=== PATIENT | male | born 1945 | race Caucasian/White ===

== ENCOUNTER 2017-10-14 01:08 | Outpatient (CLI) | payer MEDICARE ==
[~2017-10-14 01:08] MED LIST: ALLO100T PO; AMLO10TA4 PO; ATEN100T PO; DILT120C62 PO; TEMA30CA5 PO
== END 2017-10-14 23:59 | disposition home or self-care (01) ==
LOC: DIABETIC 01:08
PROVIDERS: ATTEND Specialist
DX: E11.65 Type 2 diabetes mellitus with hyperglycemia (principal); I10 Essential (primary) hypertension; M10.9 Gout, unspecified; Z85.038 Personal history of other malignant neoplasm of large intestine
CPT/HCPCS: G0108

== ENCOUNTER 2018-10-21 21:38 | Inpatient (IN) | payer MEDICARE ==
[~2018-10-21] VITALS: Ht 180.3 cm; Wt 116.0 kg
[2018-10-21 22:43] LABS: BASOPHILS # (AUTO) 0.1 X10'3 (0-0.2); BASOPHILS % (AUTO) 0.7 % (0-1); EOSINOPHILS # (AUTO) 0.1 X10'3 (0-0.9); EOSINOPHILS % (AUTO) 1.5 % (0-6); HEMATOCRIT 46.9 % (42.0-52.0); LYMPHOCYTES # (AUTO) 1.5 X10'3 (1.1-4.8); LYMPHOCYTES % (AUTO) 21.4 % (21-51); MEAN CORPUSCULAR HEMOGLOBIN 30.1 PG (27.0-31.0); MEAN CORPUSCULAR VOLUME 88.5 FL (78-98); MEAN PLATELET VOLUME 7.2 FL (7.4-10.4); MONOCYTES # (AUTO) 0.6 X10'3 (0-0.9); MONOCYTES % (AUTO) 8.2 % (2-12); NEUTROPHILS # (AUTO) 4.9 X10'3 (1.8-7.7); NEUTROPHILS % (AUTO) 68.2 % (42-75); PLATELET COUNT 151 X10'3 (140-440); RED CELL DISTRIBUTION WIDTH 13.8 % (11.5-14.5); WHITE BLOOD COUNT 7.2 X10'3 (4.5-11.0)
[2018-10-21 23:00] LABS: ALANINE AMINOTRANSFERASE 44 U/L (12-78); ALBUMIN 3.6 G/DL (3.4-5.0); ALBUMIN/GLOBULIN RATIO 1.1 (1.1-1.5); ALKALINE PHOSPHATASE 102 IU/L (46-116); ANION GAP 13 (8-16); ASPARTATE AMINO TRANSFERASE 37 U/L (10-37); BILIRUBIN,TOTAL 0.7 MG/DL (0.1-1.0); BLOOD UREA NITROGEN 15 MG/DL (7-18); BUN/CREATININE RATIO 11.5 (5.4-32.0); CALCIUM 8.7 MG/DL (8.5-10.1); CHLORIDE 107 MMOL/L (99-107); CREATININE 1.31 MG/DL (0.60-1.10); GLUCOSE 136 MG/DL (70-104); POTASSIUM 4.4 MMOL/L (3.5-5.1); SODIUM 142 MMOL/L (135-145); TOTAL CARBON DIOXIDE 21.9 MMOL/L (24-32); TOTAL PROTEIN 6.8 G/DL (6.4-8.2); TROPONIN I < 0.04 NG/ML (0.0-0.05); eGFR 53 ML/MIN
[2018-10-21 23:01] LABS: PARTIAL THROMBOPLASTIN TIME 27 SECONDS (22-32)
[2018-10-22] VITALS (7 sets, daily range): BP systolic 93–139; BP diastolic 58–107
[2018-10-22] MEDS ORDERED: ASPI-147 PO (00:46)
[2018-10-22 01:00] LABS: CLARITY,URINE CLEAR (Clear); COLOR,URINE YELLOW (Yellow); GLUCOSE, URINE NEGATIVE (Neg); KETONES,URINE 15 mg/dl (Neg); LEUKOCYTE ESTERASE ,URINE NEGATIVE (Neg); NITRITES, URINE NEGATIVE (Neg); OCCULT BLOOD,URINE NEGATIVE (Neg); PROTEIN,URINE NEGATIVE (Neg); UA COLLECTION TYPE CLN CATCH MIDSTREAM; UROBILINOGEN,URINE 0.2 E.U/dL (0.2-1.0)
[2018-10-22] MEDS ORDERED: ondansetron/PF 4mg/2ml inj IV PRN (02:35)
[2018-10-22] MEDS ORDERED: magnesium hydroxide 30ml (MOM) UD suspension PO PRN (02:35)
[2018-10-22] MEDS ORDERED: acetaminophen 325mg tablet PO PRN (02:35)
[2018-10-22] MEDS ORDERED: mag hydrox/Alum hydrox/simeth 30ml oral suspension PO PRN (02:35)
[2018-10-22] MEDS ORDERED: dextrose ORAL solution 15 GM/59 ML bottle PO PRN ×2 (02:40)
[2018-10-22] MEDS ORDERED: glucagon, human recombinant 1mg kit SUBCUT PRN (02:40)
[2018-10-22] MEDS ORDERED: MESSAGE TO PHARMACY PO ONE (02:40)
[2018-10-22] MEDS ORDERED: dextrose 50%-water 50ml dispensing syringe IV PRN ×2 (02:40)
[2018-10-22] MEDS ORDERED: insulin Lispro (HumaLOG) vial - multi-dose SQ SCH (02:40)
[2018-10-22 02:58] LABS: HEMOGLOBIN A1C 5.9 % (4.5-6.2)
[2018-10-22] MEDS ORDERED: GLIP10TA11 PO (03:01)
--- NOTE | 2018-10-22 04:10 | NUR ---
Patient in room PCU 3016. I have received report from Nasir TREVIZO (ER) and had the opportunity to ask questions and assume patient care. Patient arrived to telemetry by jeni, alert and oriented, and was able to place himself into a patient bed. Vitals taken, telemetry placed and orientation to room 3016A.
--- NOTE | 2018-10-22 06:43 | NUR ---
Problems reprioritized. Patient report given, questions answered & plan of care reviewed with Ngozi TREVIZO and Ernestina TREVIZO.
[2018-10-22] MEDS: aspirin/acetaminophen/caffeine tablet PO SCH ×3 (09:18→21:16)
[2018-10-22] MEDS: heparin, porcine 5000 units/ml vial SQ SCH ×2 (09:19→21:12)
[2018-10-22] MEDS ORDERED: AMLO5TAB PO (13:39)
[2018-10-22] MEDS ORDERED: ATOR20TA66 PO (13:40)
--- NOTE | 2018-10-22 18:58 | NUR ---
Problems reprioritized. Patient report given, questions answered & plan of care reviewed with KATINA TREVIZO.
--- NOTE | 2018-10-22 19:00 | NUR ---
Patient in room PCU 3016. I have received report from Ngozi RN/ Ernestina RN and had the opportunity to ask questions and assume patient care. Patient sitting in bed, at bedside. Will continue to monitor.
[2018-10-22] MEDS ORDERED: amLODIPine 5mg tablet PO SCH (21:00)
[2018-10-22] MEDS: insulin glargine (Lantus) pen - multi-dose SQ SCH (21:00)
[2018-10-22] MEDS: atenolol 50mg tablet PO SCH (21:15)
[2018-10-22] MEDS: allopurinol 300 MG tablet PO SCH (21:15)
[2018-10-23 02:00] VITALS: BP 107/66
[2018-10-23 06:00] VITALS: BP 119/67
[2018-10-23 06:07] LABS: BASOPHILS % (AUTO) 0.7 % (0-1); EOSINOPHILS # (AUTO) 0.2 X10'3 (0-0.9); EOSINOPHILS % (AUTO) 3.6 % (0-6); LYMPHOCYTES # (AUTO) 2.1 X10'3 (1.1-4.8); LYMPHOCYTES % (AUTO) 42.3 % (21-51); MEAN CORPUSCULAR HEMOGLOBIN 30.3 PG (27.0-31.0); MEAN CORPUSCULAR HGB CONC 34.2 g/dL (33.0-36.5); MEAN CORPUSCULAR VOLUME 88.5 FL (78-98); MEAN PLATELET VOLUME 7.2 FL (7.4-10.4); MONOCYTES # (AUTO) 0.4 X10'3 (0-0.9); NEUTROPHILS # (AUTO) 2.2 X10'3 (1.8-7.7); NEUTROPHILS % (AUTO) 44.4 % (42-75); PLATELET COUNT 134 X10'3 (140-440); RED BLOOD COUNT 4.64 X10'6 (4.70-6.10); RED CELL DISTRIBUTION WIDTH 13.9 % (11.5-14.5)
--- NOTE | 2018-10-23 06:11 | NUR ---
Problems reprioritized. Patient report given, questions answered & plan of care reviewed with Shabbir RN & Dai RN orientee. Patient resting eyes closed respirations even.
[2018-10-23 06:23] LABS: ALANINE AMINOTRANSFERASE 35 U/L (12-78); ALKALINE PHOSPHATASE 84 IU/L (46-116); ANION GAP 8 (8-16); ASPARTATE AMINO TRANSFERASE 30 U/L (10-37); BILIRUBIN,TOTAL 0.6 MG/DL (0.1-1.0); BLOOD UREA NITROGEN 15 MG/DL (7-18); BUN/CREATININE RATIO 13.2 (5.4-32.0); CALCIUM 8.7 MG/DL (8.5-10.1); CHLORIDE 109 MMOL/L (99-107); CREATININE 1.14 MG/DL (0.60-1.10); GLUCOSE 111 MG/DL (70-104); POTASSIUM 4.2 MMOL/L (3.5-5.1); SODIUM 142 MMOL/L (135-145); TOTAL CARBON DIOXIDE 25.2 MMOL/L (24-32); TOTAL PROTEIN 5.9 G/DL (6.4-8.2); eGFR 63 ML/MIN
--- NOTE | 2018-10-23 06:32 | NUR ---
Patient in room PCU 3016. I have received report from SANTHOSH Sanchez and had the opportunity to ask questions and assume patient care.
[2018-10-23] MEDS: aspirin/acetaminophen/caffeine tablet PO SCH ×3 (07:25→19:56)
[2018-10-23] MEDS: heparin, porcine 5000 units/ml vial SQ SCH ×2 (07:25→20:44)
--- NOTE | 2018-10-23 09:09 | NUR ---
PAGER ID: [phone] MESSAGE: [id number] Bud Kenia: Is he getting a olivia-scan today? SANTHOSH Ortega Ext [phone]
--- NOTE | 2018-10-23 09:24 | NUR ---
PAGER ID: [phone] MESSAGE: [id number] Bud Kenia: Do you want him to be getting a olivia-scan today? SANTHOSH Ortega Ext [phone]
[2018-10-23] MEDS ORDERED: metoprolol tartrate 1mg/ml inj IV PRN (09:30)
[2018-10-23] MEDS ORDERED: aminophylline 250mg/10ml inj. IV PRN (09:30)
[2018-10-23] MEDS ORDERED: nitroGLYCERIN 0.4mg SUBLingual tab SL PRN (09:30)
[2018-10-23] MEDS ORDERED: regadenoson 0.4mg/5ml syringe IV ONE (09:30)
--- NOTE | 2018-10-23 10:15 | NUR ---
PAGER ID: [phone] MESSAGE: [id number] Bud Aquino: Patient is wondering if we could get a uric acid level. He was wanting to know that lab. SANTHOSH Ortega Ext [phone]
[2018-10-23 11:00] VITALS: BP 125/68
[2018-10-23 15:00] VITALS: BP 96/51
--- NOTE | 2018-10-23 18:23 | NUR ---
Problems reprioritized. Patient report given, questions answered & plan of care reviewed with SANTHOSH Mayorga.
--- NOTE | 2018-10-23 18:44 | NUR ---
Patient in room U 3016. I have received report from SANTHOSH Ortega and had the opportunity to ask questions and assume patient care. Addendum: 10/23/18 at 1844 by Tierra Rios RN Amended: Links added.
[2018-10-23 19:00] VITALS: BP 114/68
[2018-10-23] MEDS: allopurinol 300 MG tablet PO SCH (20:45)
[2018-10-23] MEDS: insulin glargine (Lantus) pen - multi-dose SQ SCH (21:00)
[2018-10-23 23:00] VITALS: BP 114/83
[2018-10-23] MEDS: atenolol 50mg tablet PO SCH (23:14)
--- NOTE | 2018-10-23 23:15 | NUR ---
patient refused to take the atenolol for tonight
[2018-10-24] VITALS (12 sets, daily range): BP systolic 114–140; BP diastolic 56–89
[2018-10-24 05:30] LABS: BASOPHILS # (AUTO) 0.1 X10'3 (0-0.2); BASOPHILS % (AUTO) 1.1 % (0-1); EOSINOPHILS # (AUTO) 0.2 X10'3 (0-0.9); EOSINOPHILS % (AUTO) 4.7 % (0-6); HEMATOCRIT 43.8 % (42.0-52.0); HEMOGLOBIN 14.9 g/dl (14.0-17.9); LYMPHOCYTES # (AUTO) 1.9 X10'3 (1.1-4.8); LYMPHOCYTES % (AUTO) 39.1 % (21-51); MEAN CORPUSCULAR HEMOGLOBIN 30.2 PG (27.0-31.0); MEAN CORPUSCULAR HGB CONC 34.1 g/dL (33.0-36.5); MEAN CORPUSCULAR VOLUME 88.5 FL (78-98); MEAN PLATELET VOLUME 7.5 FL (7.4-10.4); MONOCYTES # (AUTO) 0.5 X10'3 (0-0.9); MONOCYTES % (AUTO) 9.9 % (2-12); NEUTROPHILS # (AUTO) 2.2 X10'3 (1.8-7.7); NEUTROPHILS % (AUTO) 45.2 % (42-75); PLATELET COUNT 141 X10'3 (140-440); RED BLOOD COUNT 4.95 X10'6 (4.70-6.10); RED CELL DISTRIBUTION WIDTH 13.8 % (11.5-14.5); WHITE BLOOD COUNT 4.8 X10'3 (4.5-11.0)
[2018-10-24 05:47] LABS: ALANINE AMINOTRANSFERASE 39 U/L (12-78); ALBUMIN 3.1 G/DL (3.4-5.0); ALKALINE PHOSPHATASE 88 IU/L (46-116); ANION GAP 8 (8-16); ASPARTATE AMINO TRANSFERASE 33 U/L (10-37); BILIRUBIN,TOTAL 0.5 MG/DL (0.1-1.0); BLOOD UREA NITROGEN 16 MG/DL (7-18); BUN/CREATININE RATIO 18.6 (5.4-32.0); CALCIUM 8.7 MG/DL (8.5-10.1); CHLORIDE 108 MMOL/L (99-107); CREATININE 0.86 MG/DL (0.60-1.10); GLUCOSE 111 MG/DL (70-104); POTASSIUM 4.2 MMOL/L (3.5-5.1); SODIUM 142 MMOL/L (135-145); TOTAL CARBON DIOXIDE 26.4 MMOL/L (24-32); TOTAL PROTEIN 6.1 G/DL (6.4-8.2); eGFR 87 ML/MIN
--- NOTE | 2018-10-24 06:03 | NUR ---
Problems reprioritized. Patient report given, questions answered & plan of care reviewed with SANTHOSH Ortega. Addendum: 10/24/18 at 0603 by Tierra Rios RN Amended: Links added.
[2018-10-24] MEDS: aspirin/acetaminophen/caffeine tablet PO SCH (06:11)
--- NOTE | 2018-10-24 06:13 | NUR ---
Patient in room PCU 3016. I have received report from SANTHOSH Mayorga and had the opportunity to ask questions and assume patient care.
[2018-10-24] MEDS: heparin, porcine 5000 units/ml vial SQ SCH (08:00)
--- NOTE | 2018-10-24 10:25 | NUR ---
Pt expressing desire to leave AMA as he has an appointment in [place] this early afternoon. Phoned Dr Maurice and notified her of patient's desire, she states that she will come talk to the patient.
--- NOTE | 2018-10-24 11:26 | NUR ---
Discharged IV and tele out. Educated on syncope follow-up and give DM survival skills. Stable for DC per MD.
== END 2018-10-24 11:17 | disposition home or self-care (01) | DRG 644 ==
LOC: ER 21:38 → PCU 3S 10-22 04:16 → CMPBEDREQ 10-22 04:28
PROVIDERS: ADMIT Internal Medicine; ATTEND Internal Medicine
PROC: 4A02XM4 Measurement of Cardiac Total Activity, External Approach (ICD-10-PCS; principal; 2018-10-24)
PROC: 3E033HZ Introduction of Radioactive Substance into Peripheral Vein, Percutaneous Approach (ICD-10-PCS; 2018-10-24)
DX: E16.0 Drug-induced hypoglycemia without coma (principal); N17.9 Acute kidney failure, unspecified; I48.1 Persistent atrial fibrillation; R55 Syncope and collapse; I48.0 Paroxysmal atrial fibrillation; I10 Essential (primary) hypertension; E11.9 Type 2 diabetes mellitus without complications; E66.9 Obesity, unspecified; E78.5 Hyperlipidemia, unspecified; M10.9 Gout, unspecified; I65.23 Occlusion and stenosis of bilateral carotid arteries; K43.9 Ventral hernia without obstruction or gangrene; M19.90 Unspecified osteoarthritis, unspecified site; T38.3X5A Adverse effect of insulin and oral hypoglycemic [antidiabetic] drugs, initial encounter; Z79.84 Long term (current) use of oral hypoglycemic drugs; Z79.899 Other long term (current) drug therapy; Z85.048 Personal history of other malignant neoplasm of rectum, rectosigmoid junction, and anus; Z86.73 Personal history of transient ischemic attack (TIA), and cerebral infarction without residual deficits; Z68.35 Body mass index [BMI] 35.0-35.9, adult; Y92.89 Other specified places as the place of occurrence of the external cause
CPT/HCPCS: 36415; 70450; 71045; 78452; 80053; 81003; 82948; 83036; 84439; 84443; 84484; 84550; 85025; 85610; 85730; 87081; 93005; 93017; 93306; 93880; 99285; A9500; G0378; J0280; J1644; J1815; J2785

== ENCOUNTER 2018-10-29 06:18 | Inpatient (IN) | payer MEDICARE ==
[2018-10-29] VITALS (24 sets, daily range): BP systolic 117–171; BP diastolic 68–110
[~2018-10-29] VITALS: Ht 180.3 cm; Wt 117.0 kg
[~2018-10-29 06:18] MED LIST changes: -AMLO10TA4 PO; +ASPI-147 PO; +ATOR20TA66 PO; -DILT120C62 PO; -TEMA30CA5 PO
[2018-10-29] MEDS ORDERED: cefazolin/dext.iso 2gm/100 ML IV ONE (08:00)
[2018-10-29] MEDS ORDERED: ringers solution, lacted 1,000 ML IV SCH ×2 (08:00→08:54)
[2018-10-29] MEDS ORDERED: DOCUMENT DATE & TIME OF BETA-BLOCKER PO ONE (08:00)
[2018-10-29] MEDS ORDERED: famotidine 20mg tablet PO ONE (08:00)
[2018-10-29] MEDS ORDERED: BUPIVAcaine/PF 2.5mg/ml (0.25%) 10ml vial ONE (08:39)
[2018-10-29] MEDS ORDERED: BUPIVACAINE liposomal/PF 13.3 MG/ML vial IM ONE (08:39)
[2018-10-29] MEDS ORDERED: midazolam 2 mg/2 ml injection ONE (08:42)
[2018-10-29] MEDS ORDERED: fentaNYL /PF 50mcg/ml 5ml ampule ONE (08:42)
[2018-10-29] MEDS ORDERED: ondansetron/PF 4mg/2ml inj ONE (08:44)
[2018-10-29] MEDS ORDERED: propofol inj 20 ML IV ONE (08:44)
[2018-10-29] MEDS ORDERED: LIDOcaine 1%/PF 5ML 10 MG/ML VIAL ONE (08:44)
[2018-10-29] MEDS ORDERED: rocuronium 10mg/ml inj IV ONE ×2 (08:44→11:10)
[2018-10-29] MEDS ORDERED: labetalol 20mg/4ml (5mg/ml) syringe IV PRN (08:55)
[2018-10-29] MEDS ORDERED: ondansetron/PF 4mg/2ml inj IV PRN ×2 (08:55→18:35)
[2018-10-29] MEDS ORDERED: hydrALAZINE 20mg/ml inj. IV PRN (08:55)
[2018-10-29] MEDS ORDERED: fentaNYL/PF 50MCG/1 ML 2ML syringe IV PRN (08:55)
[2018-10-29] MEDS ORDERED: morphine 4 MG/ML inj SYRINge IV PRN (08:55)
[2018-10-29] MEDS ORDERED: hydrALAZINE 20mg/ml inj. IV ONE (11:10)
[2018-10-29] MEDS ORDERED: glycopyrrolate 0.2mg/ml inj ONE (12:07)
[2018-10-29] MEDS ORDERED: morphine 10mg/ml inj. ONE (12:56)
--- NOTE | 2018-10-29 13:09 | NUR ---
Received from OR via BED, accompanied by Anesthesiologist DR JOHNSON and report given by Anesthesiologist. PT DROWSY, DENIES PAIN, ABDOMINAL BINDER COVERING INCISION AND DRSG, CDI. Addendum: 10/29/18 at 1331 by Criss Lindquist RN Amended: Links added.
[2018-10-29] MEDS ORDERED: MESSAGE TO PHARMACY PO ONE (13:10)
[2018-10-29] MEDS ORDERED: dextrose ORAL solution 15 GM/59 ML bottle PO PRN ×2 (13:10)
[2018-10-29] MEDS ORDERED: naloxone 0.4 mg/ml inj IV PRN (13:10)
[2018-10-29] MEDS ORDERED: CADD PCA waste documentation MC PRN (13:10)
[2018-10-29] MEDS ORDERED: dextrose 50%-water 50ml dispensing syringe IV PRN ×2 (13:10)
[2018-10-29] MEDS ORDERED: insulin Lispro (HumaLOG) vial - multi-dose SQ SCH (13:10)
[2018-10-29] MEDS ORDERED: glucagon, human recombinant 1mg kit SUBCUT PRN (13:10)
[2018-10-29] MEDS: morphine 4 MG/ML inj SYRINge IV PRN ×2 (13:26→14:19)
[2018-10-29] MEDS: fentaNYL/PF 50MCG/1 ML 2ML syringe IV PRN ×2 (13:41→13:56)
[2018-10-29] MEDS: HYDROmorphone/NS 1 mg/ml CADD 50 ML IV SCH ×6 (14:30→23:00)
[2018-10-29] MEDS ORDERED: HYDROmorphone/NS 1 mg/ml CADD 50 ML IV SCH ×2 (14:45→15:00)
--- NOTE | 2018-10-29 15:29 | NUR ---
CALLED DR JOHNSON AND DR VERAS W/UPDATE REGARDING PT STATING HE IS FEELING SO POORLY, ORDERS RECEIVED THAT ITS OK TO SEND PT TO SURGICAL FLOOR, PT SENT ON TELE #2,Report called to receiving nurse. Transferred via BED, NO Belongings, PTS TOOK THEM HOME, PT BLL, CALL LIGHT GIVEN, SIDE RAILS UP X 2, RECIEVING RN NOTIFIED OF PTS ARRIVAL. Special Issues communicated to receiving nurse. YES. Addendum: 10/29/18 at 1545 by Criss Lindquist RN Amended: Links added.
--- NOTE | 2018-10-29 15:30 | NUR ---
Patient in room ADRIENNE 356. I have received report from weatherstrip machine operator and had the opportunity to ask questions and assume patient care. Patient in room states pain is at a 4/10. Patient hard clear lungs throughout. Patient heart rate very rapid difficult to hear if there was any irregularities. Patient showed good circulation in all extremities. Patient in no distress and started on post op vitals. Patient was introduced to the call light and seemed to understand the CADD pump well. Patient states he just wants to rest at this time.
[2018-10-29] MEDS ORDERED: cefoxitin sod inj 2,000 MG in normal saline 100ml IV soln 100 ML IV SCH (16:00)
[2018-10-29] MEDS ORDERED: aspirin/acetaminophen/caffeine tablet PO PRN (16:15)
[2018-10-29] MEDS ORDERED: normal saline 500ml IV soln 500 ML IV ONE (17:45)
[2018-10-29] MEDS ORDERED: ketorolac tromethamine 15mg/ml inj. IM PRN ×2 (17:45→17:57)
[2018-10-29] MEDS ORDERED: ketorolac tromethamine 15mg/ml inj. IV PRN (17:56)
[2018-10-29] MEDS: ceFOXitin sod/dextrose 2g/50ml 50 ML IV SCH (17:58)
--- NOTE | 2018-10-29 18:30 | NUR ---
Patient in room ADRIENNE 356. I have received report from SANTHOSH Au and had the opportunity to ask questions and assume patient care.
--- NOTE | 2018-10-29 18:30 | NUR ---
Problems reprioritized. Patient report given, questions answered & plan of care reviewed with Meet TREVIZO.
[2018-10-29] MEDS: atenolol 50mg tablet PO SCH (20:03)
[2018-10-29] MEDS: allopurinol 300 MG tablet PO SCH (20:55)
[2018-10-29] MEDS: insulin glargine (Lantus) pen - multi-dose SQ SCH (21:00)
--- NOTE | 2018-10-29 21:00 | NUR ---
non-admin lantus r/t no labs available from current visit to check GFR. Will check with MD in AM
[2018-10-30] VITALS: BP 144/93
[2018-10-30] MEDS: ceFOXitin sod/dextrose 2g/50ml 50 ML IV SCH ×4 (00:06→23:59)
[2018-10-30] MEDS: HYDROmorphone/NS 1 mg/ml CADD 50 ML IV SCH ×12 (01:00→23:00)
[2018-10-30 04:00] VITALS: BP 170/84
--- NOTE | 2018-10-30 04:30 | NUR ---
francisco javier munguia per MD rojas
--- NOTE | 2018-10-30 05:32 | NUR ---
called tele chamber, pt's heart rate is in 90's
[2018-10-30 05:56] LABS: BASOPHILS % (AUTO) 0.1 % (0-1); EOSINOPHILS % (AUTO) 0 % (0-6); HEMATOCRIT 46.1 % (42.0-52.0); HEMOGLOBIN 15.8 g/dl (14.0-17.9); LYMPHOCYTES # (AUTO) 0.7 X10'3 (1.1-4.8); LYMPHOCYTES % (AUTO) 6.6 % (21-51); MEAN CORPUSCULAR HEMOGLOBIN 30.4 PG (27.0-31.0); MEAN CORPUSCULAR HGB CONC 34.3 g/dL (33.0-36.5); MEAN CORPUSCULAR VOLUME 88.7 FL (78-98); MEAN PLATELET VOLUME 7.4 FL (7.4-10.4); MONOCYTES % (AUTO) 10.1 % (2-12); NEUTROPHILS # (AUTO) 8.4 X10'3 (1.8-7.7); NEUTROPHILS % (AUTO) 83.2 % (42-75); PLATELET COUNT 177 X10'3 (140-440); RED BLOOD COUNT 5.19 X10'6 (4.70-6.10); RED CELL DISTRIBUTION WIDTH 13.5 % (11.5-14.5); WHITE BLOOD COUNT 10.1 X10'3 (4.5-11.0)
--- NOTE | 2018-10-30 06:30 | NUR ---
Patient in room ADRIENNE 356. I have received report from Meet TREVIZO and had the opportunity to ask questions and assume patient care.
--- NOTE | 2018-10-30 06:48 | NUR ---
Problems reprioritized. Patient report given, questions answered & plan of care reviewed with SANTHOSH Au.
[2018-10-30 08:09] VITALS: BP 168/119
[2018-10-30] MEDS: enoxaparin 40mg/0.4ml syringe SQ SCH (08:39)
[2018-10-30 11:00] VITALS: BP 145/92
--- NOTE | 2018-10-30 18:30 | NUR ---
Patient in room ADRIENNE 356. I have received report from SANTHOSH Moss and had the opportunity to ask questions and assume patient care. Addendum: 10/30/18 at 1903 by Marion Alexis RN Amended: Links added.
--- NOTE | 2018-10-30 18:30 | NUR ---
Problems reprioritized. Patient report given, questions answered & plan of care reviewed with Stephen TREVIZO. Addendum: 10/30/18 at 191 by Cesar Snyder RN Report was given with Lima Fernandez RN, above nurse listed was incorrect in who report was given to.
[2018-10-30 19:00] VITALS: BP 143/72
[2018-10-30] MEDS: allopurinol 300 MG tablet PO SCH (20:51)
[2018-10-30] MEDS: atenolol 50mg tablet PO SCH (20:55)
[2018-10-30] MEDS: insulin glargine (Lantus) pen - multi-dose SQ SCH (21:00)
[2018-10-30] MEDS ORDERED: normal saline 1000ml 500 ML IV SCH (23:22)
[2018-10-30] MEDS ORDERED: normal saline 500ml IV soln 500 ML IV SCH (23:31)
[2018-10-31 00:41] VITALS: BP 144/92
[2018-10-31] MEDS: HYDROmorphone/NS 1 mg/ml CADD 50 ML IV SCH ×6 (01:00→11:00)
[2018-10-31 05:17] LABS: BASOPHILS % (AUTO) 0.4 % (0-1); EOSINOPHILS # (AUTO) 0.1 X10'3 (0-0.9); EOSINOPHILS % (AUTO) 0.8 % (0-6); HEMATOCRIT 42.1 % (42.0-52.0); HEMOGLOBIN 14.5 g/dl (14.0-17.9); LYMPHOCYTES # (AUTO) 1.6 X10'3 (1.1-4.8); LYMPHOCYTES % (AUTO) 16.7 % (21-51); MEAN CORPUSCULAR HEMOGLOBIN 30.9 PG (27.0-31.0); MEAN CORPUSCULAR HGB CONC 34.5 g/dL (33.0-36.5); MEAN CORPUSCULAR VOLUME 89.8 FL (78-98); MEAN PLATELET VOLUME 7.6 FL (7.4-10.4); MONOCYTES # (AUTO) 1.2 X10'3 (0-0.9); MONOCYTES % (AUTO) 12.7 % (2-12); NEUTROPHILS # (AUTO) 6.7 X10'3 (1.8-7.7); NEUTROPHILS % (AUTO) 69.4 % (42-75); PLATELET COUNT 161 X10'3 (140-440); RED BLOOD COUNT 4.69 X10'6 (4.70-6.10); RED CELL DISTRIBUTION WIDTH 13.9 % (11.5-14.5); WHITE BLOOD COUNT 9.6 X10'3 (4.5-11.0)
--- NOTE | 2018-10-31 06:34 | NUR ---
Problems reprioritized. Patient report given, questions answered & plan of care reviewed with SANTHOSH TIDWELL. Addendum: 10/31/18 at 0634 by Marion Alexis RN Amended: Links added.
[2018-10-31 06:57] VITALS: BP 115/58
[2018-10-31] MEDS: ceFOXitin sod/dextrose 2g/50ml 50 ML IV SCH (07:31)
[2018-10-31] MEDS: enoxaparin 40mg/0.4ml syringe SQ SCH (07:32)
[2018-10-31 12:35] VITALS: BP 124/70
--- NOTE | 2018-10-31 13:20 | NUR ---
discussed with patient discharge instructions including care of reinaldo drain. patient verbalizes understanding of teaching. x3 extra island dressing given to patient. patient dc'd with all personal belongings.
== END 2018-10-31 13:05 | disposition home or self-care (01) | DRG 355 ==
LOC: PAS IN 06:18 → EDSTATUS 09:15 → SUR 3N 13:08
PROVIDERS: ADMIT Surgery; ATTEND Surgery
PROC: 0FT40ZZ Resection of Gallbladder, Open Approach (ICD-10-PCS; 2018-10-29)
PROC: 0KX Muscles, Transfer (ICD-10-PCS; 2018-10-29)
PROC: 0KX Muscles, Transfer (ICD-10-PCS; 2018-10-29)
PROC: 3E0T3BZ Introduction of Anesthetic Agent into Peripheral Nerves and Plexi, Percutaneous Approach (ICD-10-PCS; 2018-10-29)
PROC: 0WUF0KZ Supplement Abdominal Wall with Nonautologous Tissue Substitute, Open Approach (ICD-10-PCS; principal; 2018-10-29 09:10)
DX: K43.2 Incisional hernia without obstruction or gangrene (principal); K80.20 Calculus of gallbladder without cholecystitis without obstruction; I48.91 Unspecified atrial fibrillation; R29.6 Repeated falls; E11.9 Type 2 diabetes mellitus without complications; Z79.84 Long term (current) use of oral hypoglycemic drugs; Z79.899 Other long term (current) drug therapy; Z85.048 Personal history of other malignant neoplasm of rectum, rectosigmoid junction, and anus
CPT/HCPCS: 36415; 82948; 85025; 88304; A4618; A6258; A6402; A7000; C1758; C1781; C9290; G0378; J0360; J0694; J1170; J1650; J1815; J2250; J2270; J2405; J2704; J3010; J3490; J7030; J7040; J7120

== ENCOUNTER 2018-11-03 10:54 | Inpatient (IN) | payer MEDICARE ==
[~2018-11-03] VITALS: Ht 180.3 cm; Wt 116.0 kg
[~2018-11-03 10:54] MED LIST changes: -ATOR20TA66 PO
[2018-11-03 11:22] LABS: BASOPHILS % (AUTO) 0.2 % (0-1); EOSINOPHILS # (AUTO) 0.4 X10'3 (0-0.9); EOSINOPHILS % (AUTO) 4.2 % (0-6); HEMATOCRIT 47.7 % (42.0-52.0); HEMOGLOBIN 16.2 g/dl (14.0-17.9); LYMPHOCYTES # (AUTO) 0.8 X10'3 (1.1-4.8); LYMPHOCYTES % (AUTO) 8.6 % (21-51); MEAN CORPUSCULAR HGB CONC 33.9 g/dL (33.0-36.5); MEAN CORPUSCULAR VOLUME 88.5 FL (78-98); MEAN PLATELET VOLUME 6.7 FL (7.4-10.4); NEUTROPHILS # (AUTO) 6.6 X10'3 (1.8-7.7); PLATELET COUNT 194 X10'3 (140-440); RED BLOOD COUNT 5.39 X10'6 (4.70-6.10); WHITE BLOOD COUNT 8.8 X10'3 (4.5-11.0)
[2018-11-03 11:37] LABS: ALANINE AMINOTRANSFERASE 139 U/L (12-78); ALBUMIN 3.3 G/DL (3.4-5.0); ALBUMIN/GLOBULIN RATIO 0.8 (1.1-1.5); ALKALINE PHOSPHATASE 568 IU/L (46-116); ANION GAP 9 (8-16); ASPARTATE AMINO TRANSFERASE 121 U/L (10-37); BILIRUBIN,TOTAL 0.8 MG/DL (0.1-1.0); BLOOD UREA NITROGEN 14 MG/DL (7-18); BUN/CREATININE RATIO 10.7 (5.4-32.0); CALCIUM 8.9 MG/DL (8.5-10.1); CHLORIDE 100 MMOL/L (99-107); CREATININE 1.31 MG/DL (0.60-1.10); GLUCOSE 162 MG/DL (70-104); POTASSIUM 4.4 MMOL/L (3.5-5.1); SODIUM 137 MMOL/L (135-145); TOTAL CARBON DIOXIDE 27.6 MMOL/L (24-32); TOTAL PROTEIN 7.2 G/DL (6.4-8.2); eGFR 53 ML/MIN
[2018-11-03 11:41] LABS: PARTIAL THROMBOPLASTIN TIME 29 SECONDS (22-32)
[2018-11-03 12:16] LABS: D-DIMER 2.44 MG/L FEU (0-0.50)
[2018-11-03] MEDS ORDERED: iohexol 350MG/ML 100ml bottle IV ONE (13:10)
[2018-11-03] MEDS: metoprolol tartrate 1mg/ml inj IV SCH ×3 (13:19→14:05)
[2018-11-03] MEDS ORDERED: diltiazem 5mg/ml 5ml inj. IV ONE (14:10)
[2018-11-03] MEDS ORDERED: diltiazem-D5W 125mg/125ml 125 ML IV SCH (14:15)
[2018-11-03] MEDS ORDERED: diltiazem-NS 100mg/100ml 100 ML IV SCH (14:20)
[2018-11-03] MEDS ORDERED: morphine 2 MG/ML inj. syringe IV PRN ×2 (16:20)
[2018-11-03] MEDS ORDERED: acetaminophen 325mg tablet PO PRN (16:20)
[2018-11-03] MEDS ORDERED: ondansetron/PF 4mg/2ml inj IV PRN (16:20)
[2018-11-03] MEDS ORDERED: potassium CL 10mEq/100ml bag 100 ML IV PRN ×2 (16:20)
[2018-11-03] MEDS ORDERED: potassium Cl 20 mEq SR tablet PO PRN ×2 (16:20)
[2018-11-03] MEDS ORDERED: magnesium 4gm in 100ml NS 100 ML IV PRN (16:20)
[2018-11-03] MEDS ORDERED: magnesium Cl slow-release 64mg tablet PO PRN (16:20)
[2018-11-03] MEDS ORDERED: magnesium 2GM in 50ml NS 50 ML IV PRN (16:20)
--- NOTE | 2018-11-03 17:30 | NUR ---
Patient brought up to his room was orientated to the room. BP: 154/90 HR 98 patient is complaining of 10/10 right shoulder pain. doctor joel was paged and norco 5mg was ordered as well as to start him on PO 30 mg Cardizem first dose now.
[2018-11-03] MEDS ORDERED: HYDROcodone/acetaminophen 5mg/325mg tablet PO PRN (18:15)
[2018-11-03] MEDS: diltiazem 30mg tablet PO SCH ×2 (18:33→20:25)
--- NOTE | 2018-11-03 18:37 | NUR ---
Patient in room PCU 3028. I have received report from Nat TREVIZO and had the opportunity to ask questions and assume patient care.
--- NOTE | 2018-11-03 18:38 | NUR ---
Problems reprioritized. Patient report given, questions answered & plan of care reviewed with Iram TREVIZO.
[2018-11-03 19:00] VITALS: BP 165/98
[2018-11-03] MEDS ORDERED: oxyCODONE/APAP 10/325mg tablet PO PRN (19:10)
[2018-11-03] MEDS ORDERED: HYDROmorphone 1 mg/ml syringe IV PRN (19:10)
--- NOTE | 2018-11-03 19:26 | NUR ---
contacted dr Ashley about pt's pain 1010, after receiving norco 5, pt wanted to leave A due to uncontrol pain. came and examined pt, he gave order of dilaudid 1mg once and percocet 10mg for pain q4h
[2018-11-03 20:00] VITALS: BP 146/112
[2018-11-03] MEDS: oxyCODONE/APAP 10/325mg tablet PO PRN (20:25)
[2018-11-03 22:00] VITALS: BP 161/116
--- NOTE | 2018-11-03 22:28 | NUR ---
pt's Hr on the 150, called Dr Ashley and got an order of cardizem 10mg
[2018-11-03 23:00] VITALS: BP 154/106
[2018-11-04] VITALS (13 sets, daily range): BP systolic 119–166; BP diastolic 68–94
[2018-11-04] MEDS: diltiazem-NS 100mg/100ml 100 ML IV SCH ×3 (00:20→11:45)
[2018-11-04] MEDS: diltiazem 30mg tablet PO SCH ×4 (01:14→19:08)
[2018-11-04] MEDS: oxyCODONE/APAP 10/325mg tablet PO PRN ×5 (01:14→21:14)
[2018-11-04 05:17] LABS: BASOPHILS % (AUTO) 0.2 % (0-1); EOSINOPHILS # (AUTO) 0.2 X10'3 (0-0.9); EOSINOPHILS % (AUTO) 1.6 % (0-6); HEMATOCRIT 45.6 % (42.0-52.0); HEMOGLOBIN 15.7 g/dl (14.0-17.9); LYMPHOCYTES # (AUTO) 0.6 X10'3 (1.1-4.8); LYMPHOCYTES % (AUTO) 6.5 % (21-51); MEAN CORPUSCULAR HEMOGLOBIN 30.6 PG (27.0-31.0); MEAN CORPUSCULAR HGB CONC 34.5 g/dL (33.0-36.5); MEAN CORPUSCULAR VOLUME 88.8 FL (78-98); MEAN PLATELET VOLUME 7.1 FL (7.4-10.4); MONOCYTES # (AUTO) 1.3 X10'3 (0-0.9); NEUTROPHILS # (AUTO) 7.8 X10'3 (1.8-7.7); NEUTROPHILS % (AUTO) 78.7 % (42-75); PLATELET COUNT 169 X10'3 (140-440); RED BLOOD COUNT 5.13 X10'6 (4.70-6.10); RED CELL DISTRIBUTION WIDTH 13.8 % (11.5-14.5); WHITE BLOOD COUNT 9.9 X10'3 (4.5-11.0)
[2018-11-04 05:43] LABS: ALANINE AMINOTRANSFERASE 102 U/L (12-78); ALBUMIN 3.1 G/DL (3.4-5.0); ALBUMIN/GLOBULIN RATIO 0.8 (1.1-1.5); ALKALINE PHOSPHATASE 507 IU/L (46-116); ANION GAP 12 (8-16); ASPARTATE AMINO TRANSFERASE 62 U/L (10-37); BILIRUBIN,DIRECT 0.3 MG/DL (0-0.3); BLOOD UREA NITROGEN 11 MG/DL (7-18); BUN/CREATININE RATIO 11.1 (5.4-32.0); CALCIUM 8.8 MG/DL (8.5-10.1); CHLORIDE 99 MMOL/L (99-107); CREATININE 0.99 MG/DL (0.60-1.10); GLUCOSE 153 MG/DL (70-104); MAGNESIUM 1.8 MG/DL (1.5-2.4); POTASSIUM 4.9 MMOL/L (3.5-5.1); SODIUM 136 MMOL/L (135-145); TOTAL CARBON DIOXIDE 25.5 MMOL/L (24-32); eGFR 74 ML/MIN
--- NOTE | 2018-11-04 06:25 | NUR ---
Patient in room PCU 3028. I have received report from Iram TREVIZO and had the opportunity to ask questions and assume patient care.
--- NOTE | 2018-11-04 06:40 | NUR ---
Problems reprioritized. Patient report given, questions answered & plan of care reviewed with Nat TREVIZO.
[2018-11-04] MEDS: K and/or MAG REPLACEMENT MC SCH (08:00)
--- NOTE | 2018-11-04 15:59 | NUR ---
Diltizem drip was stopped per doctor behls orders. To stop diltizem when HR is under 100. Patients HR has been in the 85-95s throughout my shift. Drip was stopped.
--- NOTE | 2018-11-04 16:00 | NUR ---
Paged Kaylene ABEL PAGER ID: [phone] MESSAGE: [id number] VENKAT Aquino: Cardizem drip was stopped. HR at 85-95s. Can we also get an order for stool softener. Nat 1308
--- NOTE | 2018-11-04 18:09 | NUR ---
Problems reprioritized. Patient report given, questions answered & plan of care reviewed with Iram TREVIZO.
--- NOTE | 2018-11-04 19:02 | NUR ---
Patient in room PCU 3028. I have received report from Nat TREVIZO and had the opportunity to ask questions and assume patient care.
--- NOTE | 2018-11-04 19:04 | NUR ---
pt stated that seeing some lizards on the ceiling and heard things from the closet, will continue to monitor
[2018-11-04] MEDS ORDERED: atenolol 50mg tablet PO SCH (21:00)
--- NOTE | 2018-11-04 21:30 | NUR ---
called dr Ashley about pt HR that goes up 150s, want to restart the gtt at 5mg
[2018-11-04] MEDS ORDERED: diltiazem-D5W 125mg/125ml 125 ML IV SCH (21:35)
[2018-11-04] MEDS ORDERED: diltiazem-NS 100mg/100ml 125 ML IV SCH (22:00)
[2018-11-04] MEDS ORDERED: diltiazem-NS 100mg/100ml 100 ML IV SCH (22:21)
[2018-11-05] VITALS (10 sets, daily range): BP systolic 109–139; BP diastolic 68–91
--- NOTE | 2018-11-05 01:00 | NUR ---
called dr Ashley about pt that are in range from 80-100 and asked if he wants to adjust the rate of cardizem gtt, but there is no new order from him
[2018-11-05] MEDS: diltiazem 30mg tablet PO SCH ×2 (01:37→07:18)
[2018-11-05] MEDS: oxyCODONE/APAP 10/325mg tablet PO PRN ×3 (01:38→09:51)
[2018-11-05 05:09] LABS: BASOPHILS % (AUTO) 0.2 % (0-1); EOSINOPHILS # (AUTO) 0.2 X10'3 (0-0.9); HEMATOCRIT 44.7 % (42.0-52.0); HEMOGLOBIN 15.3 g/dl (14.0-17.9); LYMPHOCYTES # (AUTO) 0.9 X10'3 (1.1-4.8); LYMPHOCYTES % (AUTO) 7.3 % (21-51); MEAN CORPUSCULAR HEMOGLOBIN 30.3 PG (27.0-31.0); MEAN CORPUSCULAR HGB CONC 34.2 g/dL (33.0-36.5); MEAN CORPUSCULAR VOLUME 88.6 FL (78-98); MEAN PLATELET VOLUME 7.2 FL (7.4-10.4); MONOCYTES # (AUTO) 1.7 X10'3 (0-0.9); NEUTROPHILS # (AUTO) 9.3 X10'3 (1.8-7.7); NEUTROPHILS % (AUTO) 76.5 % (42-75); PLATELET COUNT 197 X10'3 (140-440); RED BLOOD COUNT 5.05 X10'6 (4.70-6.10); RED CELL DISTRIBUTION WIDTH 13.8 % (11.5-14.5); WHITE BLOOD COUNT 12.1 X10'3 (4.5-11.0)
[2018-11-05 05:21] LABS: ALBUMIN 2.8 G/DL (3.4-5.0); ANION GAP 9 (8-16); BLOOD UREA NITROGEN 18 MG/DL (7-18); BUN/CREATININE RATIO 15.7 (5.4-32.0); CALCIUM 8.8 MG/DL (8.5-10.1); CHLORIDE 98 MMOL/L (99-107); CREATININE 1.15 MG/DL (0.60-1.10); GLUCOSE 149 MG/DL (70-104); MAGNESIUM 1.8 MG/DL (1.5-2.4); POTASSIUM 4.6 MMOL/L (3.5-5.1); SODIUM 133 MMOL/L (135-145); TOTAL CARBON DIOXIDE 25.8 MMOL/L (24-32); eGFR 62 ML/MIN
--- NOTE | 2018-11-05 06:21 | NUR ---
Problems reprioritized. Patient report given, questions answered & plan of care reviewed with Macarena TREVIZO.
--- NOTE | 2018-11-05 06:31 | NUR ---
Patient in room PCU 3028 B. I have received report from Iram TREVIZO and had the opportunity to ask questions and assume patient care.
--- NOTE | 2018-11-05 06:32 | NUR ---
Patient in room PCU 3028. I have received report from SANTHOSH Walden and had the opportunity to ask questions and assume patient care. Patient awake in bed with no complaints at this time. All immediate needs met.
[2018-11-05] MEDS: K and/or MAG REPLACEMENT MC SCH (08:00)
[2018-11-05] MEDS ORDERED: diltiazem 30mg tablet PO ONE (09:00)
--- NOTE | 2018-11-05 11:30 | NUR ---
Discontinued cardizem drip running at 5ml/hr per Rissa Allen.
[2018-11-05] MEDS ORDERED: DILT30TA5 PO (12:31)
[2018-11-05] MEDS ORDERED: ASPI-1264 PO (12:31)
[2018-11-05] MEDS ORDERED: ATOR20TA66 PO (12:34)
[2018-11-05] MEDS ORDERED: diltiazem 30mg tablet PO SCH (14:00)
--- NOTE | 2018-11-05 14:05 | NUR ---
Patient sable for discharge per MD orders. All discharge instructions were reviewed with patient, any questions he had were answered. Specified that he needs to follow up with Dr Merchant, and primary care physician. New prescriptions were called into patient's pharmacy of choice, patient's stored Percocet retrieved from pharmacy and given to patient. Discontinued PIV, canula intact, no complications. night monitor discontinued, lead manufacturing technician was notified of patient being discharged. All belongings were collected and sent with patient, picked up and was wheeled to the lobby with assistance by a RN.
--- NOTE | 2018-11-05 15:00 | NUR ---
[place] documentation: I have reviewed and agree with all interventions, assessments performed and documented by SANTHOSH Lala. [place] Medication Administration: For this medication-pass time frame, all medication were reviewed, dispensed, administered and documented per hospital policy by SANTHOSH Lala.
== END 2018-11-05 14:18 | disposition home or self-care (01) | DRG 308 ==
LOC: ER 10:54 → PCU 3S 17:37 → CMPBEDREQ 19:58
PROVIDERS: ADMIT Internal Medicine; ATTEND Family Medicine
PROC: B32T1ZZ Computerized Tomography (CT Scan) of Left Pulmonary Artery using Low Osmolar Contrast (ICD-10-PCS; principal; 2018-11-03)
PROC: B32S1ZZ Computerized Tomography (CT Scan) of Right Pulmonary Artery using Low Osmolar Contrast (ICD-10-PCS; 2018-11-03)
DX: I48.91 Unspecified atrial fibrillation (principal); N17.0 Acute kidney failure with tubular necrosis; K59.00 Constipation, unspecified; E11.9 Type 2 diabetes mellitus without complications; E78.5 Hyperlipidemia, unspecified; I10 Essential (primary) hypertension; M10.9 Gout, unspecified; M19.90 Unspecified osteoarthritis, unspecified site; E66.01 Morbid (severe) obesity due to excess calories; R07.89 Other chest pain; Z68.35 Body mass index [BMI] 35.0-35.9, adult; Z79.82 Long term (current) use of aspirin; Z85.048 Personal history of other malignant neoplasm of rectum, rectosigmoid junction, and anus; Z86.73 Personal history of transient ischemic attack (TIA), and cerebral infarction without residual deficits; Z79.84 Long term (current) use of oral hypoglycemic drugs; Z79.899 Other long term (current) drug therapy; Z90.49 Acquired absence of other specified parts of digestive tract
CPT/HCPCS: 36415; 71045; 71275; 80048; 80053; 80076; 83735; 84484; 85025; 85379; 85610; 85730; 87081; 93005; 96365; 96375; 99285; G0378; J1170; J2270; J2405; J3490; Q9967

== ENCOUNTER 2021-01-02 08:31 | Day surgery (SDC) | payer MEDICARE, OTHER ==
[2021-01-02] VITALS (15 sets, daily range): BP systolic 116–152; BP diastolic 67–104
[~2021-01-02] VITALS: Ht 177.8 cm; Wt 128.3 kg
[~2021-01-02 08:31] MED LIST changes: -ASPI-147 PO; +ATOR20TA66 PO; +DILT30TA5 PO
[2021-01-02] MEDS ORDERED: normal saline 1000ml 1,000 ML IV PRN (08:45)
[2021-01-02 09:23] LABS: BASOPHILS # (AUTO) 0.1 X10'3 (0-0.2); BASOPHILS % (AUTO) 0.9 % (0-1); EOSINOPHILS # (AUTO) 0.4 X10'3 (0-0.9); EOSINOPHILS % (AUTO) 6.9 % (0-6); HEMATOCRIT 47.4 % (42.0-52.0); HEMOGLOBIN 16.3 g/dl (14.0-17.9); LYMPHOCYTES # (AUTO) 1.3 X10'3 (1.1-4.8); LYMPHOCYTES % (AUTO) 21.1 % (21-51); MEAN CORPUSCULAR HEMOGLOBIN 30.2 PG (27.0-31.0); MEAN CORPUSCULAR HGB CONC 34.3 g/dL (33.0-36.5); MEAN CORPUSCULAR VOLUME 88.1 FL (78-98); MEAN PLATELET VOLUME 6.8 FL (7.4-10.4); MONOCYTES # (AUTO) 0.6 X10'3 (0-0.9); MONOCYTES % (AUTO) 10.7 % (2-12); NEUTROPHILS # (AUTO) 3.6 X10'3 (1.8-7.7); NEUTROPHILS % (AUTO) 60.4 % (42-75); PLATELET COUNT 180 X10'3 (140-440); RED BLOOD COUNT 5.38 X10'6 (4.70-6.10); RED CELL DISTRIBUTION WIDTH 13.4 % (11.5-14.5)
[2021-01-02] MEDS ORDERED: AMLO5TAB4 PO (09:41)
[2021-01-02] MEDS ORDERED: midazolam 1 mg/ML 2ml injection ONE ×2 (11:18→12:09)
[2021-01-02] MEDS ORDERED: fentaNYL/PF 50MCG/1 ML 2ML syringe ONE ×2 (11:18→12:09)
== END 2021-01-02 13:38 | disposition home or self-care (01) ==
LOC: SSTAY O 08:31
PROVIDERS: ATTEND Radiology Vascular & Interventional Radiology
DX: R59.0 Localized enlarged lymph nodes (principal); R19.09 Other intra-abdominal and pelvic swelling, mass and lump; N40.1 Benign prostatic hyperplasia with lower urinary tract symptoms; Z85.51 Personal history of malignant neoplasm of bladder; Z85.048 Personal history of other malignant neoplasm of rectum, rectosigmoid junction, and anus; Z79.899 Other long term (current) drug therapy; Z20.822 Contact with and (suspected) exposure to COVID-19
CPT/HCPCS: 10009; 10010; 36415; 85025; 87635; 88184; 88185; 99152; 99153; C9803; J2250; J3010; 38505; 77012; 88173; 88305

== ENCOUNTER 2021-01-11 12:17 | Outpatient (CLI) | payer MEDICARE, OTHER ==
[~2021-01-11 12:17] MED LIST changes: -ALLO100T PO; +AMLO5TAB4 PO; -ATOR20TA66 PO; -DILT30TA5 PO
== END 2021-01-11 23:59 | disposition home or self-care (01) ==
LOC: RAD 12:17
PROVIDERS: ATTEND Surgery
DX: N13.30 Unspecified hydronephrosis (principal); N28.82 Megaloureter; R19.04 Left lower quadrant abdominal swelling, mass and lump
CPT/HCPCS: 78707; A9562

== ENCOUNTER 2021-04-07 08:43 | Outpatient (CLI) | payer MEDICARE, OTHER | END 2021-04-07 23:59 | disposition home or self-care (01) | LOC: RAD 08:43 | PROVIDERS: ATTEND Surgery | DX: N40.0 Benign prostatic hyperplasia without lower urinary tract symptoms (principal); R19.09 Other intra-abdominal and pelvic swelling, mass and lump; N26.1 Atrophy of kidney (terminal); M43.24 Fusion of spine, thoracic region; M12.88 Other specific arthropathies, not elsewhere classified, other specified site; K76.0 Fatty (change of) liver, not elsewhere classified; M51.37 Other intervertebral disc degeneration, lumbosacral region; Z96.0 Presence of urogenital implants; Z90.49 Acquired absence of other specified parts of digestive tract; Z85.038 Personal history of other malignant neoplasm of large intestine | CPT/HCPCS: 74176 ==